=== PATIENT | male | born 1985 | race Two or more races ===

== ENCOUNTER 2017-01-19 16:49 | Emergency (ER) | payer SELFPAY ==
[2017-01-19 17:45] VITALS: BP 124/72; PULSE 101; RESP 16; TEMP 100.1; O2SAT 96
[2017-01-19] MEDS ORDERED: LEVOFLOXACIN 500 MG TAB PO ONE (18:30)
[2017-01-19] MEDS ORDERED: LEVOFLOXACIN 500 MG TAB ONE (18:38)
== END 2017-01-19 18:44 | disposition home or self-care (01) | DRG 153 ==
LOC: ED 16:49
DX: H65.92 Unspecified nonsuppurative otitis media, left ear (principal); H60.312 Diffuse otitis externa, left ear
CPT/HCPCS: 99282